=== PATIENT | male | born 1970 | race Caucasian/White ===

== ENCOUNTER 2020-01-22 11:31 | Inpatient (IN) | payer OTHER, SELFPAY ==
[2020-01-22] VITALS (8 sets, daily range): BP systolic 107–129; BP diastolic 57–71; PULSE 65–119; RESP 16–20; TEMP 36.4–38.8; O2SAT 95–97; BMI 27.6
--- NOTE | 2020-01-22 11:45 | ED.MALEGU ---
HPI - Male Genitourinary General Chief complaint: Urogenital-Male <Jennifer Mackey PA-C - Last Filed: 01/22/20 13:01> Stated complaint: kidney pain <MICHAEL Peralta Last Filed: 01/22/20 13:01> Time Seen by Provider: 01/22/20 11:32 <Jennifer Mackey PA-C - Last Filed: 01/22/20 13:01> Source: patient <MICHAEL Peralta Last Filed: 01/22/20 13:01> Mode of arrival: ambulatory <MICHAEL Peralta Last Filed: 01/22/20 13:01> Limitations: no limitations <MICHAEL Peralta Last Filed: 01/22/20 13:01> History of Present Illness HPI Narrative: This is a 49 year old male that presents to the ER for urinary symptoms since yesterday. Reports over the last couple days he noted that his urine started to look cloudy. Reports last night he started having fevers, body aches and flank pain. Reports a history of neurogenic bladder and that he self caths for this. His urologist is Dr. Landaverde. Denies cold symptoms, abdominal pain, vomiting, or hematuria. <Jennifer Mackey PA-C - Last Filed: 01/22/20 13:01> Related Data Home medications: Home Medications Medication Instructions Recorded Confirmed omeprazole 20 mg PO DAILY 01/22/20 01/22/20 simvastatin 10 mg PO 01/22/20 zinc 50 mg PO DAILY 01/22/20 01/22/20 <MICHAEL Peralta Last Filed: 01/22/20 13:01> Allergies/Adverse reactions: Allergies Allergy/AdvReac Type Severity Reaction Status Date / Time No Known Allergies Allergy Unverified 01/22/20 12:37 <MICHAEL Peralta Last Filed: 01/22/20 13:01> Review of Systems Review of Systems: Narrative: CONSTITUTIONAL: Reports fever, chills ENT: Denies rhinorrhea, congestion, sore throat RESPIRATORY: Denies cough GASTROINTESTINAL: Denies abdominal pain, nausea, vomiting, or diarrhea. GENITOURINARY: Denies hematuria. MUSCULOSKELETAL: Reports back pain <Jennifer Mackey PA-C - Last Filed: 01/22/20 13:01> All systems reviewed & are unremarkable except as noted in HPI and below <Jennifer Mackey PA-C - Last Filed: 01/22/20 13:01> PMFSH Past Medical History Medical History: Medical History (Updated 01/22/20 @ 12:54 by Jennifer Mackey PA-C) History of gastroesophageal reflux (GERD) History of neurogenic bladder <Jennifer Mackey PA-C - Last Filed: 01/22/20 13:01> Social History Social History: Social History (Updated 01/22/20 @ 11:53 by Jennifer Mackey PA-C) Smoking status: Never smoker Gender identity (if verbalized by the patient): Male <Jennifer Mackey PA-C - Last Filed: 01/22/20 13:01> Exam Narrative: Exam Narrative: GENERAL: Well-appearing, well-nourished, and in no acute distress. HEAD: Normocephalic, atraumatic. EYES: EOMI. CHEST: Clear to auscultation. No respiratory distress. No wheezes rales or rhonchi HEART: Regular rate and rhythm. No murmur heard. Normal peripheral pulses. ABDOMEN: Soft, nontender, nondistended, normal active bowel sounds. No CVA tenderness EXTREMITIES: Normal range of motion. No edema. SKIN: Warm, dry, no rash. NEURO: No focal deficits. Alert and oriented x3. PSYCH: Normal mood and affect <Jennifer Mackey PA-C - Last Filed: 01/22/20 13:01> Course PHP WEB DEVELOPER/PA Physician Supervision For this patient encounter, I reviewed the PHP WEB DEVELOPER or PA documentation, treatment plan, and medical decision making; and I had [id number] time with this patient. Patient seen at the bedside in conjunction with physician assistant professor of life sciences. Patient with findings of sepsis secondary to UTI. Patient is resting comfortably with improvement in his tachycardia on my evaluation after receiving IV fluids. Patient advised diagnosis of sepsis and need for admission for IV antibiotics. Patient is currently stable and appropriate for general medical floor. <Telma Colunga MD - Last Filed: 01/22/20 13:52> Consultations Consultation #1: Dr. Colunga spoke with Dr. Delaney about patient and workup who accepts admission <Em
[2020-01-22 11:46] LABS: Basophils Percent Auto 0.3 % (0.2-1.2); Eosinophils Absolute Auto 0.1 K/mm3 (0-0.3); Eosinophils Percent Auto 0.4 % (0-4.4); Hematocrit 45.3 % (42.0-52.0); Hemoglobin 15.9 g/dL (14.0-18.0); Immature Granulocyte Absolute 0.06 K/mm3 (0.00-0.031); Immature Granulocyte Percent A 0.4 % (0-0.5); Lymphocytes Absolute Auto 1.11 K/mm3 (0.9-3.2); Lymphocytes Percent Auto 8.2 % (18.3-44.2); Mean Corpuscular HGB Conc 35.1 g/dl (32-36); Mean Corpuscular Hemoglobin 30.7 pg (26-34); Mean Corpuscular Volume 87.5 fl (80-100); Mean Platelet Volume 10.3 fl (7.4-10.4); Monocytes Absolute Auto 1.8 K/mm3 (0.1-0.6); Monocytes Percent Auto 13.5 % (2.6-8.5); Neutrophils Absolute Auto 10.4 K/mm3 (1.3-6.7); Neutrophils Percent Auto 77.2 % (45.5-73.1); Platelet Count Result 243 k/mm3 (150-375); Red Blood Count 5.18 M/mm3 (4.6-6.20); Red Cell Distribution Width 12.1 % (11.5-14.5); White Blood Count 13.5 K/mm3 (4.5-10.0)
[2020-01-22] MEDS: SODIUM CHLORIDE 0.9% IV 1,000 ML 999 ML IV CONT ×2 (11:55→12:34)
--- NOTE | 2020-01-22 11:55 | ECG_ITS ---
Measurements Intervals [place] Rate: 78 P: 26 OR: 168 QRS: 25 QRSD: 81 T: 31 QT: 361 QTc: 412 Interpretive Statements SINUS RHYTHM NORMAL ECG Electronically Signed On 01-22-2020 16:11:09 CDT by Rony Sparks D.O.
[2020-01-22 11:59] LABS: Alanine Aminotransferase 30 U/L (4-50); Albumin Level 4.9 g/dL (3.5-5.1); Alkaline Phosphatase 82 U/L (38-126); Aspartate Amino Transferase 29 U/L (17-59); Bilirubin,Total 2.9 mg/dL (0.2-1.3); Blood Urea Nitrogen 9 mg/dL (9-20); Calcium 9.5 mg/dL (8.4-10.2); Carbon Dioxide 26 mmol/L (22-30); Chloride 102 mmol/L (98-107); Estimated CRCL calculation 82 ml/min; Estimated Glomerular Filt Rate > 60; Glucose 116 mg/dL (75-110); Lipase 76 U/L (23-300); Sodium 136 mmol/L (137-145)
--- NOTE | 2020-01-22 12:07 | PC.NURSE ---
Called to add on PT PTT INR, Lactic acid, C-reactive protein, and Direct Bili Indirect Bili.
[2020-01-22 12:16] LABS: Prothrombin Time 13.3 Seconds (11.1-14.7)
[2020-01-22 12:17] LABS: Partial Thromboplastin Time 29.7 SECONDS (22.3-36.8)
[2020-01-22 12:18] LABS: Add Urine Microscopic? YES; Appearance Urine Clear (Clear); Bacteria Urine Trace /hpf; Bilirubin Urine Negative (Negative); Blood Urine Negative (Negative); Color Urine Yellow (Yellow); Glucose Urine UA Negative (Negative); Ketones Urine Negative (Negative); Leukocyte Esterase Ur 2+ LEU/UL (Negative); Mucus Urine Rare /lpf; Nitrate Urine Positive (Negative); Protein Urine 2+ mg/dL (Negative); Specific Grav Ur 1.019 (1.001-1.035); Squamous Epithelial Cell Urine Rare /hpf (Few); WBC Urine >75 /hpf
[2020-01-22 12:20] LABS: Bilirubin Indirect 2.8 mg/dL (0-1.1)
[2020-01-22 12:29] LABS: CRP 4.1 mg/dL (<1.0)
[2020-01-22 12:58] LABS: Lactic Acid Reflex 1.2 mmol/L (0.7-2.1)
--- NOTE | 2020-01-22 13:48 | ADMGEN ---
This patient, Richard Aguilar, was admitted to 2 Medical Room 260-. Patient/family oriented to hospital policies and general routines including ID bracelet, bed and alarms, visiting hours, pain management, procedures, bathroom and other care routines, personal items, smoking policy, room service/diet, and visiting hours. Valuables list has been completed. Information on how to activate the Rapid Response Team has been discussed. Patient/Family are encouraged to report perceived risks to care and to ask questions if they do not understand what they are told or what they should do.
[2020-01-22] MEDS: SODIUM CHLORIDE 0.9% IV 1,000 ML 125 ML IV CONT ×2 (14:09→22:13)
--- NOTE | 2020-01-22 20:05 | PM.IMHP ---
H&P: HPI History of Present Illness Chief complaint: sepsis,urinary tract infection Narrative: Richard Aguilar is a 49 year old male with a history of neurogenic bladder. The patient's self [place] about 4 to 5 times a day. He has been very careful and has not had a UTI and several years. He stated that he has not had any resistant bacterial infections. The patient started to complain of having some lower back pain for the last couple of days. His urine start to look dark and cloudy. He started having fevers, body aches, flank pain over the last couple days. No vomiting no diarrhea no cough. The patient took Tylenol for fever and pain. IV fluids. IV Tylenol. And ceftriaxone. Patient is being treated for pyelonephritis. No CT was performed now. Date of service 01/22/2020 Review of Systems Review of Systems: All systems reviewed & are unremarkable except as noted in HPI and below Constitutional: Constitutional: Reports as per HPI and Reports no additional constitutional complaints Eyes: Eyes: Reports as per HPI and Reports no additional eye complaints ENT: Reports system reviewed and no additional complaints, except as documented and Reports Normal hearing present Cardiovascular: Cardiovascular: Reports no additional cardiovascular complaints Respiratory: Respiratory: Reports no additional respiratory complaints and Reports no additional respiratory complaints Gastrointestinal: Gastrointestinal: Reports as per HPI and Reports no additional gastrointestinal complaints Musculoskeletal: Musculoskeletal: Reports no additional musculoskeletal complaints Integumentary/Breasts: Skin/Breast: Reports system reviewed and no additional complaints, except as docu and Reports as per HPI Neurologic: Reports system reviewed and no additional complaints, except as documented, Reports as per HPI and Reports Normal hearing present Psychiatric: Psychiatric: Reports no additional psychiatric complaints and Reports as per HPI Endocrine: Endocrine: Reports no additional endocrine complaints Hematologic/Lymphatic: Hematologic/Lymphatic: Reports no additional hematologic/lymphatic complaints Allergic/Immunologic: Allergic/Immunologic: Reports no additional allergic/immunologic complaints [facility] Past Medical History Medical History (Updated 01/22/20 @ 20:14 by Holley Danielson NP) History of gastroesophageal reflux (GERD) History of neurogenic bladder Hyperlipidemia Neurogenic bladder Straight Caths about 4 -5 times a day. Surgical History Surgical History (Updated 01/22/20 @ 20:10 by Holley Danielson NP) H/O lymph node excision Left neck S/P cystourethroscopy with dilation of urethral stricture Family History Family History Mother Hypercholesteremia Father Hypercholesteremia Social History Social History (Updated 01/22/20 @ 20:11 by Holley Danielson NP) Social History: The patient lives with his Kassandra. They have 2 children together. 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 The patient is a full code. He is a social drinker. Lifelong nonsmoker no illicit drugs or marijuana Smoking status: Never smoker Second hand tobacco smoke exposure: Yes Alcohol intake: current Drinks per week: 3 Substance use: never Living arrangements: with family Occupation/Education: occupation Gender identity (if verbalized by the patient): Male Spiritual care concerns: No Meds Home Medications and Allergies Home Medications Medication Instructions Recorded Confirmed Type omeprazole 20 mg PO DAILY 01/22/20 01/22/20 History simvastatin 10 mg PO HS 01/22/20 01/22/20 History zinc 50 mg PO ONCE 01/22/20 01/22/20 History Allergies Allergy/AdvReac Type Severity Reaction Status Date / Time No Known Allergies Allergy Unverified 01/22/20 12:37 Vital Signs Vital Signs - 24 hr 01/22/20 1
[2020-01-22] MEDS: SIMVASTATIN 10 MG TABLET PO (22:12)
[2020-01-23] MEDS: SODIUM CHLORIDE 0.9% IV 1,000 ML 125 ML IV CONT ×3 (05:19→22:13)
[2020-01-23 06:05] LABS: Basophils Percent Auto 0.4 % (0.2-1.2); Eosinophils Absolute Auto 0.2 K/mm3 (0-0.3); Eosinophils Percent Auto 2.2 % (0-4.4); Hematocrit 38.3 % (42.0-52.0); Hemoglobin 13.3 g/dL (14.0-18.0); Immature Granulocyte Absolute 0.03 K/mm3 (0.00-0.031); Immature Granulocyte Percent A 0.4 % (0-0.5); Lymphocytes Absolute Auto 1.35 K/mm3 (0.9-3.2); Lymphocytes Percent Auto 17.7 % (18.3-44.2); Mean Corpuscular HGB Conc 34.7 g/dl (32-36); Mean Corpuscular Hemoglobin 30.5 pg (26-34); Mean Corpuscular Volume 87.8 fl (80-100); Mean Platelet Volume 10.3 fl (7.4-10.4); Monocytes Absolute Auto 1.3 K/mm3 (0.1-0.6); Monocytes Percent Auto 16.9 % (2.6-8.5); Neutrophils Absolute Auto 4.8 K/mm3 (1.3-6.7); Neutrophils Percent Auto 62.4 % (45.5-73.1); Platelet Count Result 186 k/mm3 (150-375); Red Blood Count 4.36 M/mm3 (4.6-6.20); Red Cell Distribution Width 12.2 % (11.5-14.5); White Blood Count 7.6 K/mm3 (4.5-10.0)
[2020-01-23 06:24] LABS: Lactic Acid 0.6 mmol/L (0.7-2.1)
[2020-01-23 06:26] LABS: Alanine Aminotransferase 69 U/L (4-50); Albumin Level 3.8 g/dL (3.5-5.1); Alkaline Phosphatase 75 U/L (38-126); Aspartate Amino Transferase 67 U/L (17-59); Bilirubin,Total 1.6 mg/dL (0.2-1.3); Blood Urea Nitrogen 7 mg/dL (9-20); Calcium 8.5 mg/dL (8.4-10.2); Carbon Dioxide 24 mmol/L (22-30); Chloride 108 mmol/L (98-107); Estimated CRCL calculation 100 ml/min; Estimated Glomerular Filt Rate > 60; Glucose 106 mg/dL (75-110); Magnesium 1.9 mg/dL (1.6-2.3); Potassium 3.9 mmol/L (3.4-5.0); Sodium 138 mmol/L (137-145)
[2020-01-23 07:10] LABS: Thyroid Stimulating Hormone Reflex 0.773 uIU/mL (0.465-4.68)
[2020-01-23] MEDS: PANTOPRAZOLE 40 MG TABLET PO (09:53)
[2020-01-23 10:02] LABS: Blood Urea Nitrogen 6 mg/dL (9-20); Calcium 8.9 mg/dL (8.4-10.2); Carbon Dioxide 25 mmol/L (22-30); Chloride 109 mmol/L (98-107); Estimated CRCL calculation 90 ml/min; Estimated Glomerular Filt Rate > 60; Glucose 135 mg/dL (75-110); Potassium 3.7 mmol/L (3.4-5.0); Sodium 139 mmol/L (137-145)
[2020-01-23 12:09] VITALS: BP 123/77; PULSE 84; RESP 19; TEMP 36.5; O2SAT 99
[2020-01-23 14:00] VITALS: BP 111/51; PULSE 66; RESP 16; TEMP 36.9; O2SAT 96
--- NOTE | 2020-01-23 15:39 | PM.IMPN ---
Progress Note: A&P Assessment and Plan (1) Acute pyelonephritis: Code(s): N10 - Acute pyelonephritis Status: Acute Assessment and Plan: Continue with ceftriaxone. Continue to monitor cultures. Tylenol for pain management. The patient is okay with that Tylenol does not require any of the pain medication at this time. Continue with IV fluids. 01/23/20 15:39 Patient is a 49-year-old male with history of neurogenic bladder and had been self cathing and has not had any urinary symptoms and several years however last couple of days patient noticed that urine was more dark cloudy lower abdominal pain back pain fever and chills he called his primary care doctor and was instructed to come to ER, most likely patient has a pyelonephritis started on Rocephin will follow up on urine culture and sensitivity and further recommendation to follow, and states feeling much better compared to when he arrived denies any fever or chills (2) Hyperlipidemia: Code(s): E78.5 - Hyperlipidemia, unspecified Status: Chronic Assessment and Plan: Continue with simvastatin. (3) Neurogenic bladder: Code(s): N31.9 - Neuromuscular dysfunction of bladder, unspecified Status: Chronic Assessment and Plan: Patient typically straight [place] 4 to 5 times a day. Subjective Date/time seen: 01/23/20 15:39 Patient is a 49-year-old male with history of neurogenic bladder and had been self cathing and has not had any urinary symptoms and several years however last couple of days patient noticed that urine was more dark cloudy lower abdominal pain back pain fever and chills he called his primary care doctor and was instructed to come to ER, most likely patient has a pyelonephritis started on Rocephin will follow up on urine culture and sensitivity and further recommendation to follow, and states feeling much better compared to when he arrived denies any fever or chills Review of Systems Review of Systems: All systems reviewed & are unremarkable except as noted in HPI and below Exam Const: General: comfortable and no acute distress HENMT: General nose exam: Normal nares present Mouth: Yes moist mucous membranes Eyes: General: appearance normal, both eyes and all related structures Sclera: sclerae normal Neck: Neck: supple Resp: Effort & Inspection: normal respiratory effort Auscultation: clear to auscultation bilaterally Cardio: Rate: regular rate Rhythm: regular rhythm GI: Auscultation: normal bowel sounds Other: Diffusely tender Skin: General skin exam: normal color Neuro: Speech: normal speech Sensory Exam: normal sensation Extrem: General: normal to inspection Psych: Affect: Anxious affect present Objective Data Vital Signs Vital Signs: Vital Signs - 24 hr 01/22/20 18:31 01/22/20 19:01 01/22/20 22:00 Temperature 99.1 F 97.5 F L 98 F Pulse Rate 65 Respiratory Rate 20 Blood Pressure 109/57 L Pulse Oximetry 96 01/23/20 12:09 01/23/20 14:00 Temperature 97.7 F 98.4 F Pulse Rate 84 66 Respiratory Rate 19 16 Blood Pressure 123/77 111/51 L Pulse Oximetry 99 96 Intake/Output Intake/Output: Intake & Output 01/20/20 01/21/20 01/22/20 01/23/20 23:59 23:59 23:59 23:59 Intake Total 3670 3070 Output Total 1100 825 Balance 2570 2245 Meds/Results Medications: Active Medications Generic Name Dose Route Start Last Admin Trade Name Freq PRN Reason Stop Dose Admin Sodium Chloride 1,000 mls @ 125 mls/hr 01/22/20 13:05 01/23/20 15:10 Normal Saline Iv IV CONT 125 mls/hr .Q8H AIRAM Administration Ceftriaxone Sodium/Dextrose 1 gm in 50 mls @ 100 mls/hr 01/23/20 14:00 01/23/20 15:07 Rocephin 1 Gm/D5w 50 Ml IVPB 100 mls/hr Q24H AIRAM Administration Pantoprazole Sodium 40 mg 01/23/20 09:00 01/23/20 09:53 Protonix PO 40 mg QAM AIRAM Administration Simvastatin 10 mg 01/22/20 21:00 01/22/20 22:12 Zocor PO 10 mg HS AIRAM Administration
[2020-01-23] MEDS: SIMVASTATIN 10 MG TABLET PO (21:07)
[2020-01-23 22:00] VITALS: BP 124/73; PULSE 79; RESP 20; TEMP 36.7; O2SAT 95
[2020-01-24 06:00] VITALS: BP 125/74; PULSE 74; RESP 20; TEMP 36.7; O2SAT 96
[2020-01-24] MEDS: SODIUM CHLORIDE 0.9% IV 1,000 ML 125 ML IV CONT ×3 (06:22→22:09)
[2020-01-24] MEDS: PANTOPRAZOLE 40 MG TABLET PO (07:48)
[2020-01-24 09:22] LABS: Hematocrit 39.6 % (42.0-52.0); Hemoglobin 13.6 g/dL (14.0-18.0); Mean Corpuscular HGB Conc 34.3 g/dl (32-36); Mean Corpuscular Hemoglobin 30.2 pg (26-34); Mean Platelet Volume 9.9 fl (7.4-10.4); Platelet Count Result 189 k/mm3 (150-375); Red Cell Distribution Width 12.3 % (11.5-14.5); White Blood Count 5.6 K/mm3 (4.5-10.0)
--- NOTE | 2020-01-24 13:25 | PM.IMPN ---
Progress Note: A&P Assessment and Plan (1) Acute pyelonephritis: Code(s): N10 - Acute pyelonephritis Status: Acute Assessment and Plan: Continue with ceftriaxone. Continue to monitor cultures. Tylenol for pain management. The patient is okay with that Tylenol does not require any of the pain medication at this time. Continue with IV fluids. 01/24/20 13:25 Patient is a 49-year-old male with history of neurogenic bladder and had been self cathing and has not had any urinary symptoms and several years however last couple of days patient noticed that urine was more dark cloudy lower abdominal pain back pain fever and chills he called his primary care doctor and was instructed to come to ER, most likely patient has a pyelonephritis started on Rocephin, urine culture is growing E coli sensitive to Rocephin, patient is feeling much better denies any abdominal pain nausea or vomiting fever or chills, patient self catheterization for urination and has a pyelonephritis will treat with IV antibiotics for total for 5 days before discharging patient home on oral antibiotic for 7 days (2) Hyperlipidemia: Code(s): E78.5 - Hyperlipidemia, unspecified Status: Chronic Assessment and Plan: Continue with simvastatin. (3) Neurogenic bladder: Code(s): N31.9 - Neuromuscular dysfunction of bladder, unspecified Status: Chronic Assessment and Plan: Patient typically straight [place] 4 to 5 times a day. Subjective Date/time seen: 01/24/20 13:25 Patient is a 49-year-old male with history of neurogenic bladder and had been self cathing and has not had any urinary symptoms and several years however last couple of days patient noticed that urine was more dark cloudy lower abdominal pain back pain fever and chills he called his primary care doctor and was instructed to come to ER, most likely patient has a pyelonephritis started on Rocephin, urine culture is growing E coli sensitive to Rocephin, patient is feeling much better denies any abdominal pain nausea or vomiting fever or chills, patient self catheterization for urination and has a pyelonephritis will treat with IV antibiotics for total for 5 days before discharging patient home on oral antibiotic for 7 days Review of Systems Review of Systems: All systems reviewed & are unremarkable except as noted in HPI and below Exam Const: General: comfortable and no acute distress HENMT: General nose exam: Normal nares present Mouth: Yes moist mucous membranes Eyes: Sclera: sclerae normal Neck: Neck: supple Resp: Effort & Inspection: normal respiratory effort Auscultation: clear to auscultation bilaterally Cardio: Rate: regular rate Rhythm: regular rhythm GI: Auscultation: normal bowel sounds Skin: General skin exam: normal color Neuro: Speech: normal speech Sensory Exam: normal sensation Extrem: General: normal to inspection Psych: Affect: Anxious affect present Objective Data Vital Signs Vital Signs: Vital Signs - 24 hr 01/23/20 14:00 01/23/20 22:00 01/24/20 06:00 Temperature 98.4 F 98.1 F 98.1 F Pulse Rate 66 79 74 Respiratory Rate 16 20 20 Blood Pressure 111/51 L 124/73 125/74 Pulse Oximetry 96 95 96 Intake/Output Intake/Output: Intake & Output 01/21/20 01/22/20 01/23/20 01/24/20 23:59 23:59 23:59 23:59 Intake Total 3670 5980 1630 Output Total 1100 2825 1300 Balance 2570 3155 330 Meds/Results Medications: Active Medications Generic Name Dose Route Start Last Admin Trade Name Freq PRN Reason Stop Dose Admin Acetaminophen 650 mg 01/23/20 18:21 Tylenol Tablet PO Q6H PRN Mild Pain (1-3) or Fever Hydrocodone Bitart/Acetaminophen 1 tab 01/23/20 18:22 01/23/20 21:09 [place] 5-325 Mg PO 1 tab Q6H PRN Administration Pain Rated 4-6 Sodium Chloride 1,000 mls @ 125 mls/hr 01/22/20 13:05 01/24/20 06:22 Normal Saline Iv IV CONT 125 mls/hr .Q8H AIRAM Administration Ceftriaxone S
[2020-01-24 14:00] VITALS: BP 117/72; PULSE 68; RESP 17; TEMP 36.9; O2SAT 98
[2020-01-24 22:00] VITALS: BP 106/67; PULSE 69; RESP 18; TEMP 36.5; O2SAT 98
[2020-01-24] MEDS: SIMVASTATIN 10 MG TABLET PO (22:09)
[2020-01-25 06:00] VITALS: BP 113/61; PULSE 60; RESP 18; TEMP 36.4; O2SAT 95
[2020-01-25 06:22] LABS: Hematocrit 38.4 % (42.0-52.0); Hemoglobin 13.4 g/dL (14.0-18.0); Mean Corpuscular HGB Conc 34.9 g/dl (32-36); Mean Corpuscular Volume 86.1 fl (80-100); Mean Platelet Volume 10.2 fl (7.4-10.4); Platelet Count Result 216 k/mm3 (150-375); Red Blood Count 4.46 M/mm3 (4.6-6.20); White Blood Count 4.9 K/mm3 (4.5-10.0)
[2020-01-25] MEDS: SODIUM CHLORIDE 0.9% IV 1,000 ML 125 ML IV CONT ×2 (09:15→17:51)
[2020-01-25] MEDS: PANTOPRAZOLE 40 MG TABLET PO (09:15)
--- NOTE | 2020-01-25 11:21 | PM.IMPN ---
Progress Note: A&P Assessment and Plan (1) Acute pyelonephritis: Code(s): N10 - Acute pyelonephritis Status: Acute Assessment and Plan: Continue with ceftriaxone. Continue to monitor cultures. Tylenol for pain management. The patient is okay with that Tylenol does not require any of the pain medication at this time. Continue with IV fluids. 01/25/20 11:21 Patient is a 49-year-old male with history of neurogenic bladder and had been self cathing and has not had any urinary symptoms and several years however last couple of days patient noticed that urine was more dark cloudy lower abdominal pain back pain fever and chills he called his primary care doctor and was instructed to come to ER, most likely patient has a pyelonephritis started on Rocephin, urine culture is growing E coli sensitive to Rocephin, patient is feeling much better denies any abdominal pain nausea or vomiting fever or chills, patient self catheterization for urination and has a pyelonephritis will treat with IV antibiotics for total for 4/5 days before discharging patient home on oral antibiotic for 7 days (2) Hyperlipidemia: Code(s): E78.5 - Hyperlipidemia, unspecified Status: Chronic Assessment and Plan: Continue with simvastatin. (3) Neurogenic bladder: Code(s): N31.9 - Neuromuscular dysfunction of bladder, unspecified Status: Chronic Assessment and Plan: Patient typically straight [place] 4 to 5 times a day. Subjective Date/time seen: 01/25/20 11:21 Patient is a 49-year-old male with history of neurogenic bladder and had been self cathing and has not had any urinary symptoms and several years however last couple of days patient noticed that urine was more dark cloudy lower abdominal pain back pain fever and chills he called his primary care doctor and was instructed to come to ER, most likely patient has a pyelonephritis started on Rocephin, urine culture is growing E coli sensitive to Rocephin, patient is feeling much better denies any abdominal pain nausea or vomiting fever or chills, patient self catheterization for urination and has a pyelonephritis will treat with IV antibiotics for total for 4/5 days before discharging patient home on oral antibiotic for 7 days Review of Systems Review of Systems: All systems reviewed & are unremarkable except as noted in HPI and below Exam Const: General: comfortable and no acute distress HENMT: General nose exam: Normal nares present Eyes: Sclera: sclerae normal Neck: Neck: supple Resp: Effort & Inspection: normal respiratory effort Auscultation: clear to auscultation bilaterally Cardio: Rate: regular rate Rhythm: regular rhythm GI: Auscultation: normal bowel sounds Skin: General skin exam: normal color Neuro: Speech: normal speech Sensory Exam: normal sensation Extrem: General: normal to inspection Psych: Affect: Anxious affect present Objective Data Vital Signs Vital Signs: Vital Signs - 24 hr 01/24/20 14:00 01/24/20 22:00 01/25/20 06:00 Temperature 98.5 F 97.7 F 97.6 F Pulse Rate 68 69 60 Respiratory Rate 17 18 18 Blood Pressure 117/72 106/67 113/61 Pulse Oximetry 98 98 95 Intake/Output Intake/Output: Intake & Output 01/22/20 01/23/20 01/24/20 01/25/20 23:59 23:59 23:59 23:59 Intake Total 3670 5980 5250 1630 Output Total 1100 2825 4700 1200 Balance 2570 3155 550 430 Meds/Results Medications: Active Medications Generic Name Dose Route Start Last Admin Trade Name Freq PRN Reason Stop Dose Admin Acetaminophen 650 mg 01/23/20 18:21 Tylenol Tablet PO Q6H PRN Mild Pain (1-3) or Fever Hydrocodone Bitart/Acetaminophen 1 tab 01/23/20 18:22 01/23/20 21:09 [place] 5-325 Mg PO 1 tab Q6H PRN Administration Pain Rated 4-6 Sodium Chloride 1,000 mls @ 125 mls/hr 01/22/20 13:05 01/25/20 09:15 Normal Saline Iv IV CONT 125 mls/hr .Q8H AIRAM Administration Ceftriaxone Sodium/Dextrose 1 gm i
[2020-01-25 14:00] VITALS: BP 118/61; PULSE 67; RESP 16; TEMP 37.3; O2SAT 98
[2020-01-25] MEDS: SIMVASTATIN 10 MG TABLET PO (20:16)
[2020-01-25 21:32] VITALS: BP 117/56; PULSE 68; RESP 16; TEMP 36.6; O2SAT 99
[2020-01-26] MEDS: SODIUM CHLORIDE 0.9% IV 1,000 ML 125 ML IV CONT ×3 (01:54→20:34)
[2020-01-26 06:00] VITALS: BP 108/64; PULSE 625; RESP 16; TEMP 36.7; O2SAT 96
[2020-01-26 06:00] LABS: Hemoglobin 13.3 g/dL (14.0-18.0); Mean Corpuscular Hemoglobin 30.4 pg (26-34); Mean Platelet Volume 10.4 fl (7.4-10.4); Platelet Count Result 227 k/mm3 (150-375); Red Blood Count 4.37 M/mm3 (4.6-6.20); Red Cell Distribution Width 11.9 % (11.5-14.5); White Blood Count 5.4 K/mm3 (4.5-10.0)
[2020-01-26] MEDS: PANTOPRAZOLE 40 MG TABLET PO (08:07)
[2020-01-26 14:00] VITALS: BP 106/74; PULSE 72; RESP 16; TEMP 36.3; O2SAT 98
--- NOTE | 2020-01-26 14:05 | PM.IMPN ---
Progress Note: A&P Assessment and Plan (1) Acute pyelonephritis: Code(s): N10 - Acute pyelonephritis Status: Acute Assessment and Plan: Continue with ceftriaxone. Continue to monitor cultures. Tylenol for pain management. The patient is okay with that Tylenol does not require any of the pain medication at this time. Continue with IV fluids. 01/25/20 11:21 Patient is a 49-year-old male with history of neurogenic bladder and had been self cathing and has not had any urinary symptoms and several years however last couple of days patient noticed that urine was more dark cloudy lower abdominal pain back pain fever and chills he called his primary care doctor and was instructed to come to ER, most likely patient has a pyelonephritis started on Rocephin, urine culture is growing E coli sensitive to Rocephin, patient is feeling much better denies any abdominal pain nausea or vomiting fever or chills, patient self catheterization for urination and has a pyelonephritis will treat with IV antibiotics for total for 4/5 days before discharging patient home on oral antibiotic for 7 days (2) Hyperlipidemia: Code(s): E78.5 - Hyperlipidemia, unspecified Status: Chronic Assessment and Plan: Continue with simvastatin. (3) Neurogenic bladder: Code(s): N31.9 - Neuromuscular dysfunction of bladder, unspecified Status: Chronic Assessment and Plan: Patient typically straight [place] 4 to 5 times a day. Subjective Date/time seen: 01/26/20 14:05 Patient is a 49-year-old male with history of neurogenic bladder and had been self cathing and has not had any urinary symptoms and several years however last couple of days patient noticed that urine was more dark cloudy lower abdominal pain back pain fever and chills he called his primary care doctor and was instructed to come to ER, most likely patient has a pyelonephritis started on Rocephin, urine culture is growing E coli sensitive to Rocephin, patient is feeling much better denies any abdominal pain nausea or vomiting fever or chills, patient self catheterization for urination and has a pyelonephritis will treat with IV antibiotics for total for 4/5 days before discharging patient home on oral antibiotic for 7 days Review of Systems Review of Systems: All systems reviewed & are unremarkable except as noted in HPI and below Exam Const: General: comfortable and no acute distress HENMT: General nose exam: Normal nares present Mouth: Yes moist mucous membranes Eyes: General: appearance normal, both eyes and all related structures Sclera: sclerae normal Neck: Neck: supple Resp: Effort & Inspection: normal respiratory effort Auscultation: clear to auscultation bilaterally Cardio: Rate: regular rate Rhythm: regular rhythm GI: Auscultation: normal bowel sounds Skin: General skin exam: normal color Neuro: Speech: normal speech Sensory Exam: normal sensation Extrem: General: normal to inspection Psych: Affect: Anxious affect present Objective Data Vital Signs Vital Signs: Vital Signs - 24 hr 01/25/20 21:32 01/26/20 06:00 Temperature 97.8 F 98.0 F Pulse Rate 68 625 H Respiratory Rate 16 16 Blood Pressure 117/56 L 108/64 Pulse Oximetry 99 96 Intake/Output Intake/Output: Intake & Output 01/23/20 01/24/20 01/25/20 01/26/20 23:59 23:59 23:59 23:59 Intake Total 5980 5250 4155 2240 Output Total 2825 4700 3950 2800 Balance 3155 550 205 -560 Meds/Results Medications: Active Medications Generic Name Dose Route Start Last Admin Trade Name Freq PRN Reason Stop Dose Admin Acetaminophen 650 mg 01/23/20 18:21 Tylenol Tablet PO Q6H PRN Mild Pain (1-3) or Fever Hydrocodone Bitart/Acetaminophen 1 tab 01/23/20 18:22 01/23/20 21:09 [place] 5-325 Mg PO 1 tab Q6H PRN Administration Pain Rated 4-6 Sodium Chloride 1,000 mls @ 125 mls/hr 01/22/20 13:05 01/26/20 09:58 Normal Saline Iv IV CONT 125 mls/h
[2020-01-26] MEDS: SIMVASTATIN 10 MG TABLET PO (20:34)
[2020-01-26 22:00] VITALS: BP 121/71; PULSE 68; RESP 18; TEMP 36.4; O2SAT 93
[2020-01-27] MEDS: SODIUM CHLORIDE 0.9% IV 1,000 ML 125 ML IV CONT (03:46)
[2020-01-27 05:57] LABS: Hematocrit 38.8 % (42.0-52.0); Hemoglobin 13.7 g/dL (14.0-18.0); Mean Corpuscular HGB Conc 35.3 g/dl (32-36); Mean Corpuscular Hemoglobin 30.6 pg (26-34); Mean Corpuscular Volume 86.8 fl (80-100); Mean Platelet Volume 10.2 fl (7.4-10.4); Platelet Count Result 240 k/mm3 (150-375); Red Blood Count 4.47 M/mm3 (4.6-6.20); Red Cell Distribution Width 11.9 % (11.5-14.5); White Blood Count 5.7 K/mm3 (4.5-10.0)
[2020-01-27 06:00] VITALS: BP 108/72; PULSE 93; RESP 18; TEMP 36.3; O2SAT 94
[2020-01-27] MEDS: PANTOPRAZOLE 40 MG TABLET PO (08:37)
--- NOTE | 2020-01-27 11:03 | PM.DS ---
DS: Diagnosis Admitting Diagnosis Admitting Diagnosis: Acute pyelonephritis Discharge Diagnosis (1) Acute pyelonephritis: Code(s): N10 - Acute pyelonephritis Status: Acute Assessment and Plan: Continue with ceftriaxone. Continue to monitor cultures. Tylenol for pain management. The patient is okay with that Tylenol does not require any of the pain medication at this time. Continue with IV fluids. 01/25/20 11:21 Patient is a 49-year-old male with history of neurogenic bladder and had been self cathing and has not had any urinary symptoms and several years however last couple of days patient noticed that urine was more dark cloudy lower abdominal pain back pain fever and chills he called his primary care doctor and was instructed to come to ER, most likely patient has a pyelonephritis started on Rocephin, urine culture is growing E coli sensitive to Rocephin, patient is feeling much better denies any abdominal pain nausea or vomiting fever or chills, patient self catheterization for urination and has a pyelonephritis will treat with IV antibiotics for total for 4/5 days before discharging patient home on oral antibiotic for 7 days (2) Hyperlipidemia: Code(s): E78.5 - Hyperlipidemia, unspecified Status: Chronic Assessment and Plan: Continue with simvastatin. (3) Neurogenic bladder: Code(s): N31.9 - Neuromuscular dysfunction of bladder, unspecified Status: Chronic Assessment and Plan: Patient typically straight Centre 4 to 5 times a day. DS: Summary Hospital Course Reason for hospitalization: Richard Aguilar is a 49 year old male with a history of neurogenic bladder. The patient's self Centre about 4 to 5 times a day. He has been very careful and has not had a UTI and several years. He stated that he has not had any resistant bacterial infections. The patient started to complain of having some lower back pain for the last couple of days. His urine start to look dark and cloudy. He started having fevers, body aches, flank pain over the last couple days. No vomiting no diarrhea no cough. The patient took Tylenol for fever and pain. IV fluids. IV Tylenol. And ceftriaxone. Patient is being treated for pyelonephritis. No CT was performed now. Date of service 01/22/2020 Hospital Course: Patient is a 49-year-old male with history of neurogenic bladder and had been self cathing and has not had any urinary symptoms and several years however last couple of days patient noticed that urine was more dark cloudy lower abdominal pain back pain fever and chills he called his primary care doctor and was instructed to come to ER, most likely patient has a pyelonephritis started on Rocephin, urine culture is growing E coli sensitive to Rocephin, patient is feeling much better denies any abdominal pain nausea or vomiting fever or chills, patient self catheterization for urination and has a pyelonephritis will treat with IV antibiotics for total for 5/5 days before discharging patient home on oral antibiotic for 7 days, today patient completed 5 days of IV antibiotic his clinically stable will going discharge the patient home on oral antibiotics for 7 days Status at Discharge Functional status at discharge: independent ambulation Overall status at discharge: patient is back to baseline Time Spent with Patient Time attestation: Total time spent providing and/or coordinating discharge services: Patient was seen and examined at the time of the discharge Condition at discharge is stable Code status: Full code. Time spent preparing discharge summary, discharge medications, discussing discharge planning with nurse case management and patient is 35 minutes. Time spent: Greater than 30 minutes Exam Const: General: comfortable and no acute distress HENMT: General nose exam: Normal nares present Mouth: Yes moist mucous membranes Eyes: General: appearance normal, both eyes and all related structures Sclera: sclerae normal
== END 2020-01-27 12:28 | disposition home or self-care (01) | DRG 698 ==
LOC: ANHED 13:05 → ANH2MED 16:00
PROVIDERS: Nurse Practitioner; Physician Assistant; Admitting Provider Internal Medicine; Emergency Provider Emergency Medicine; Visit Provider Family Medicine
DX: T83.518A Infection and inflammatory reaction due to other urinary catheter, initial encounter (principal); A41.9 Sepsis, unspecified organism; R65.20 Severe sepsis without septic shock; N39.0 Urinary tract infection, site not specified; N10 Acute pyelonephritis; E78.5 Hyperlipidemia, unspecified; N31.9 Neuromuscular dysfunction of bladder, unspecified; B96.20 Unspecified Escherichia coli [E. coli] as the cause of diseases classified elsewhere; Z11.59 Encounter for screening for other viral diseases
CPT/HCPCS: 36415; 80048; 80053; 81001; 82248; 83605; 83690; 83735; 84443; 85025; 85027; 85610; 85730; 86140; 87040; 87077; 87086; 87088; 87186; 87635; 93005; 96365; 96367; 99285; A9270; J0131; J0696; J7030; U0003

== ENCOUNTER 2021-07-08 15:54 | Emergency (ER) | payer OTHER, SELFPAY ==
[2021-07-08 16:02] VITALS: BP 136/83; PULSE 68; RESP 18; TEMP 36.2; O2SAT 98
[2021-07-08 16:26] LABS: Basophils Absolute Auto 0.1 K/mm3 (0.0-0.1); Basophils Percent Auto 0.9 % (0.2-1.2); Eosinophils Absolute Auto 0.4 K/mm3 (0-0.3); Eosinophils Percent Auto 6.3 % (0-4.4); Hematocrit 43.9 % (42.0-52.0); Hemoglobin 15.5 g/dL (14.0-18.0); Immature Granulocyte Absolute 0.02 K/mm3 (0.00-0.031); Immature Granulocyte Percent A 0.3 % (0-0.5); Lymphocytes Absolute Auto 2.48 K/mm3 (0.9-3.2); Lymphocytes Percent Auto 37.3 % (18.3-44.2); Mean Corpuscular HGB Conc 35.3 g/dl (32-36); Mean Corpuscular Hemoglobin 31.3 pg (26-34); Mean Corpuscular Volume 88.7 fl (80-100); Mean Platelet Volume 10.2 fl (7.4-10.4); Monocytes Absolute Auto 0.7 K/mm3 (0.1-0.6); Monocytes Percent Auto 9.9 % (2.6-8.5); Neutrophils Percent Auto 45.3 % (45.5-73.1); Platelet Count Result 267 k/mm3 (150-375); Red Blood Count 4.95 M/mm3 (4.6-6.20); White Blood Count 6.6 K/mm3 (4.5-10.0)
[2021-07-08 16:30] LABS: Alanine Aminotransferase 31 U/L (4-50); Alkaline Phosphatase 63 U/L (38-126); Anion Gap 8 mmol/L (8-16); Aspartate Amino Transferase 26 U/L (17-59); Bilirubin,Total 1.4 mg/dL (0.2-1.3); Blood Urea Nitrogen 10 mg/dL (9-20); Calcium 9.8 mg/dL (8.4-10.2); Carbon Dioxide 31 mmol/L (22-30); Chloride 102 mmol/L (98-107); Estimated CRCL calculation 80 ml/min; Estimated Glomerular Filt Rate > 60; Glucose 98 mg/dL (65-110); Lipase 97 U/L (23-300); Potassium 3.7 mmol/L (3.4-5.0); Sodium 141 mmol/L (137-145)
--- NOTE | 2021-07-08 18:54 | ED.MALEGU ---
HPI - Male Genitourinary General Chief complaint: Urogenital-Male Stated complaint: UTI, SELF CATHS Time Seen by Provider: 07/08/21 18:53 Source: patient Mode of arrival: ambulatory Limitations: no limitations History of Present Illness HPI Narrative: Patient is a 51-year-old male with a history of neurogenic bladder, presenting for evaluation of lower back pain, some frontal abdominal discomfort. Patient states that he has to self catheterize himself, has done so for the past 11 years. Patient denies fever, chills, nausea or vomiting. He reports mild lower back pain without specific flank pain. Patient states that he called into an [employer] physician at [place] who recommended he be seen at the emergency department for urinalysis and urine culture given patient has a history of urinary sepsis. In the past, patient has been hospitalized for this. He has seen Dr. Landaverde. Patient denies any sharp stabbing abdominal pain or flank pain. No history of nephrolithiasis. Patient has not noticed any malodorous urine or hematuria. He denies dysuria. Per chart review, patient with a history of E. coli pyelonephritis, resistant to ciprofloxacin, sensitive to cephalosporins. Related Data Home Medications Medication Instructions Recorded Confirmed omeprazole 20 mg PO DAILY 01/22/20 01/22/20 cranberry 07/08/21 Allergies Allergy/AdvReac Type Severity Reaction Status Date / Time No Known Allergies Allergy Verified 07/08/21 19:31 Review of Systems Review of Systems: CONSTITUTIONAL: Denies fever, chills, or sweats. EYES: Denies visual changes, redness, or discharge. ENT: Denies rhinorrhea, congestion, sore throat, or otalgia. CARDIOVASCULAR: Denies chest pain, palpitations, or edema. RESPIRATORY: Denies cough or dyspnea. GASTROINTESTINAL: Reports mild frontal abdominal discomfort, denies nausea, vomiting or diarrhea GENITOURINARY: Denies dysuria or hematuria. Reports hesitancy which is chronic. SKIN: Denies rash or itching. MUSCULOSKELETAL: Denies back pain, joint pain, or myalgia. NEUROLOGIC: Denies headache, numbness, or weakness. [facility] Past Medical History Medical History History of gastroesophageal reflux (GERD) History of neurogenic bladder Hyperlipidemia Neurogenic bladder Straight Caths about 4 -5 times a day. Surgical History Surgical History H/O lymph node excision Left neck S/P cystourethroscopy with dilation of urethral stricture Family History Family History Mother Hypercholesteremia Father Hypercholesteremia Social History Social History Social History: The patient lives with his Kassandra. They have 2 children together. 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 The patient is a full code. He is a social drinker. Lifelong nonsmoker no illicit drugs or marijuana Smoking status: Never smoker Second hand tobacco smoke exposure: Yes Alcohol intake: current Drinks per week: 3 Substance use: never Gender identity (if verbalized by the patient): Male Spiritual care concerns: No Exam Narrative: GENERAL: Awake, alert, conversant HEAD: Normocephalic, atraumatic. EYES: PERRLA and EOMI. ENT: Nares clear, no rhinorrhea or epistaxis. Mucous membranes moist. NECK: Supple. CHEST: No respiratory distress, breathing even and non labored HEART: Regular rate, sinus rhythm ABDOMEN:Non distended, non tender, no suprapubic tenderness, no CVA tenderness bilaterally EXTREMITIES: Normal range of motion. No edema. SKIN: Warm, dry, no rash. NEURO:No focal deficits. Alert and oriented x3 Course Vital Signs Vital signs: Vital Signs Temperature 36.2 C L 07/08/21 16:02 Pulse Rate 68 07/08/21 16:02 R
[2021-07-08 20:00] LABS: Add Urine Microscopic? YES; Appearance Urine Clear (Clear); Bilirubin Urine Negative (Negative); Blood Urine Negative (Negative); Color Urine Yellow (Yellow); Glucose Urine UA Negative (Negative); Ketones Urine Negative (Negative); Leukocyte Esterase Ur Trace LEU/UL (Negative); Mucus Urine Rare /lpf; Nitrate Urine Negative (Negative); Protein Urine Negative (Negative); RBC Urine 0-2 /hpf (0-2); Specific Grav Ur 1.012 (1.001-1.035); Squamous Epithelial Cell Urine Rare /hpf (Few); Urobilinogen Urine Negative mg/dL (<2.0)
== END 2021-07-08 20:25 | disposition home or self-care (01) ==
PROVIDERS: Emergency Medicine; Emergency Provider Emergency Medicine
DX: N31.9 Neuromuscular dysfunction of bladder, unspecified (principal); R82.998 Other abnormal findings in urine; K21.9 Gastro-esophageal reflux disease without esophagitis; E78.5 Hyperlipidemia, unspecified
CPT/HCPCS: 36415; 80053; 81001; 83690; 85025; 99283

== ENCOUNTER 2021-11-19 10:25 | Emergency (ER) | payer OTHER, SELFPAY ==
[2021-11-19 10:30] VITALS: BP 120/64; PULSE 110; RESP 16; TEMP 37.3; O2SAT 97
[2021-11-19 10:44] LABS: Basophils Absolute Auto 0.1 K/mm3 (0.0-0.1); Basophils Percent Auto 0.3 % (0.2-1.2); Eosinophils Percent Auto 0.3 % (0-4.4); Hematocrit 44.2 % (42.0-52.0); Hemoglobin 15.2 g/dL (14.0-18.0); Immature Granulocyte Absolute 0.04 K/mm3 (0.00-0.031); Immature Granulocyte Percent A 0.3 % (0-0.5); Lymphocytes Absolute Auto 1.51 K/mm3 (0.9-3.2); Lymphocytes Percent Auto 9.9 % (18.3-44.2); Mean Corpuscular HGB Conc 34.4 g/dl (32-36); Mean Corpuscular Hemoglobin 30.8 pg (26-34); Mean Corpuscular Volume 89.7 fl (80-100); Mean Platelet Volume 10.1 fl (7.4-10.4); Monocytes Absolute Auto 1.9 K/mm3 (0.1-0.6); Monocytes Percent Auto 12.5 % (2.6-8.5); Neutrophils Absolute Auto 11.7 K/mm3 (1.3-6.7); Neutrophils Percent Auto 76.7 % (45.5-73.1); Platelet Count Result 254 k/mm3 (150-375); Red Blood Count 4.93 M/mm3 (4.6-6.20); Red Cell Distribution Width 12.4 % (11.5-14.5); White Blood Count 15.3 K/mm3 (4.5-10.0)
[2021-11-19 10:59] LABS: Alanine Aminotransferase 55 U/L (4-50); Albumin Level 4.7 g/dL (3.5-5.1); Alkaline Phosphatase 82 U/L (38-126); Anion Gap 6 mmol/L (8-16); Aspartate Amino Transferase 51 U/L (17-59); Bilirubin,Total 2.9 mg/dL (0.2-1.3); Blood Urea Nitrogen 9 mg/dL (9-20); Calcium 9.3 mg/dL (8.4-10.2); Carbon Dioxide 28 mmol/L (22-30); Chloride 103 mmol/L (98-107); Estimated CRCL calculation 80 ml/min; Estimated Glomerular Filt Rate > 60; Glucose 160 mg/dL (65-110); Sodium 137 mmol/L (137-145)
[2021-11-19 11:48] LABS: Add Urine Microscopic? YES; Appearance Urine Cloudy (Clear); Bacteria Urine 4+ /hpf; Bilirubin Urine Negative (Negative); Color Urine Yellow (Yellow); Glucose Urine UA Negative (Negative); Ketones Urine 1+ mg/dL (Negative); Leukocyte Esterase Ur Trace LEU/UL (Negative); Mucus Urine Rare /lpf; Nitrate Urine Positive (Negative); Protein Urine Negative (Negative); Specific Grav Ur 1.017 (1.001-1.035); Squamous Epithelial Cell Urine Rare /hpf (Few); Urobilinogen Urine Negative mg/dL (<2.0); WBC Urine 21-30 /hpf
[2021-11-19 11:50] VITALS: TEMP 37.7
[2021-11-19 11:59] LABS: Blood Urine Negative (Negative)
[2021-11-19] MEDS: ACETAMINOPHEN 500 MG TABLET 1000 MG PO (13:02)
[2021-11-19] MEDS: SODIUM CHLORIDE 0.9% IV 1,000 ML 999 ML IV CONT (13:05)
--- NOTE | 2021-11-19 15:15 | ED.GENADULT ---
HPI - General Adult General Chief complaint: Back Pain/Injury Stated complaint: fever, back pain Time Seen by Provider: 11/19/21 11:33 History of Present Illness HPI narrative: Patient is a 51-year-old male who presents ER with concerns for UTI. He is having lower abdominal pressure that radiates into his back. Patient has history of idiopathic neurogenic bladder and performs self-catheterization. He has begun having subjective fever. He also has been having darker appearing urine than typical. No additional infectious symptoms. No diarrhea. No chest pain or chest pressure. No difficulty breathing or cough. Related Data Home Medications Medication Instructions Recorded Confirmed omeprazole 20 mg PO DAILY 01/22/20 01/22/20 cranberry 07/08/21 Allergies Allergy/AdvReac Type Severity Reaction Status Date / Time No Known Allergies Allergy Verified 11/19/21 11:42 Review of Systems Review of Systems: All systems reviewed & are unremarkable except as noted in HPI and below Constitutional: Constitutional: Reports chills, Reports fever(s) and Denies weakness ENT: Denies nasal congestion and Denies sore throat Cardiovascular: Cardiovascular: Denies chest pain and Denies radiating jaw, neck or arm pain Gastrointestinal: Gastrointestinal: Reports abdominal pain, Denies diarrhea, Denies nausea and Denies vomiting Genitourinary: Genitourinary: Denies hematuria, Denies dysuria, Denies urinary frequency and Denies urinary incontinence Comments: Malodorous urine PMFSH Past Medical History Medical History History of gastroesophageal reflux (GERD) History of neurogenic bladder Hyperlipidemia Neurogenic bladder Straight Caths about 4 -5 times a day. Surgical History Surgical History H/O lymph node excision Left neck S/P cystourethroscopy with dilation of urethral stricture Family History Family History Mother Hypercholesteremia Father Hypercholesteremia Social History Social History Social History: The patient lives with his Kassandra. They have 2 children together. 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 The patient is a full code. He is a social drinker. Lifelong nonsmoker no illicit drugs or marijuana Smoking status: Never smoker Second hand tobacco smoke exposure: Yes Alcohol intake: current Drinks per week: 3 Substance use: never Gender identity (if verbalized by the patient): Male Spiritual care concerns: No Exam Narrative: GENERAL: Well-appearing, well-nourished, and in no acute distress. HEAD: Normocephalic, atraumatic. ENT: Mucous membranes moist. CHEST: Clear to auscultation. No respiratory distress. HEART: Regular rate and rhythm. Normal peripheral pulses. ABDOMEN: Soft, nontender, nondistended, no CVA tenderness. EXTREMITIES: Normal range of motion. No edema. SKIN: Warm, dry, no rash. NEURO: Alert and oriented x3. PSYCH: Normal mood and affect. Course Course Emergency Course: Patient resting comfortably. Hydrated. Antipyretics administered as well as antibiotics. Discharge home with [facility]. Vital Signs Vital signs: Vital Signs Temperature 99.2 F 11/19/21 10:30 Pulse Rate 110 H 11/19/21 10:30 Respiratory Rate 16 11/19/21 10:30 Blood Pressure 120/64 11/19/21 10:30 Pulse Oximetry 97 11/19/21 10:30 Temperature 99.8 F H 11/19/21 11:50 Pulse Rate 110 H 11/19/21 10:30 Respiratory Rate 16 11/19/21 10:30 Blood Pressure 120/64 11/19/21 10:30 Pulse Oximetry 97 11/19/21 10:30 Medical Decision Making Vital Signs Vital Signs: Vital Signs Temperature 99.2 F 11/19/21 10:30 Pulse Rate 110 H 11/19/21 10:30 Respiratory Rate 16 11/19/21 10:30 Blood
[2021-11-19 15:24] VITALS: PULSE 74; RESP 16; O2SAT 99
[2021-11-19 15:26] VITALS: TEMP 36.4
== END 2021-11-19 15:27 | disposition home or self-care (01) ==
PROVIDERS: Emergency Provider Emergency Medicine
DX: N39.0 Urinary tract infection, site not specified (principal); N31.8 Other neuromuscular dysfunction of bladder; E78.5 Hyperlipidemia, unspecified; K21.9 Gastro-esophageal reflux disease without esophagitis
CPT/HCPCS: 36415; 80053; 81001; 85025; 87077; 87086; 87186; 96361; 96365; 99284; A9270; J0696; J7030

== ENCOUNTER 2022-03-25 12:26 | Emergency (ER) | payer OTHER, SELFPAY ==
[2022-03-25 12:34] VITALS: BP 115/65; PULSE 66; RESP 14; TEMP 36.3; O2SAT 95
--- NOTE | 2022-03-25 12:39 | ED.URI ---
HPI - URI/Sore Throat General Chief Complaint: Upper Respiratory Infection Stated Complaint: Cough,Congestion Time Seen by Provider: 03/25/22 12:43 Source: patient, RN notes reviewed and old records reviewed Mode of arrival: ambulatory Limitations: no limitations History of Present Illness HPI Narrative: 51-year-old female who presents to [facility] with complaints of cough and congestion since Monday last week with progressive to cough on Monday. Patient reports that he has had COVID vaccination and Booster and also has had flu shot. Patient reports that he has also had ore throat and nasal congestion and drainage, denies any known fevers. Home Covid test taken last week negative. MD elicited complaint: cough, sore throat, rhinorrhea and nasal congestion Onset (ago): day(s) () Related Data Home Medications Medication Instructions Recorded Confirmed omeprazole 20 mg capsule,delayed 20 mg PO DAILY 01/22/20 03/25/22 release Allergies Allergy/AdvReac Type Severity Reaction Status Date / Time No Known Allergies Allergy Verified 03/25/22 12:31 Review of Systems Review of Systems: CONSTITUTIONAL: Denies fever, chills, or sweats. EYES: Denies visual changes, redness, or discharge. ENT: Positive for rhinorrhea, congestion, sore throat, no otalgia. CARDIOVASCULAR: Denies chest pain, palpitations, or edema. RESPIRATORY: Positive for cough or dyspnea. GASTROINTESTINAL: Denies abdominal pain, nausea, vomiting, or diarrhea. GENITOURINARY: Denies dysuria or hematuria. SKIN: Denies rash or itching. MUSCULOSKELETAL: Denies back pain, joint pain, or myalgia. NEUROLOGIC: Denies headache, numbness, or weakness. PSYCHIATRIC: Denies anxiety or depression. All systems reviewed & are unremarkable except as noted in HPI and below PMFSH Past Medical History Medical History History of gastroesophageal reflux (GERD) History of neurogenic bladder Hyperlipidemia Neurogenic bladder Straight Caths about 4 -5 times a day. Surgical History Surgical History H/O lymph node excision Left neck S/P cystourethroscopy with dilation of urethral stricture Family History Family History Mother Hypercholesteremia Father Hypercholesteremia Social History Social History Social History: The patient lives with his Kassandra. They have 2 children together. 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 The patient is a full code. He is a social drinker. Lifelong nonsmoker no illicit drugs or marijuana Smoking status: Never smoker Second hand tobacco smoke exposure: Yes Alcohol intake: current Drinks per week: 3 Substance use: never Gender identity (if verbalized by the patient): Male Spiritual care concerns: No Comments At time of signature, agree with nursing past medical, surgical, social and family history. There is no relevant family history pertinent to the presenting complaint Exam Narrative: GENERAL: Well-appearing, well-nourished, and in no acute distress. HEAD: Normocephalic, atraumatic. EYES: PERRLA and EOMI. ENT: Nares red with clear rhinorrhea no epistaxis. Mucous membranes moist.TM's normal with dull light reflex. throat with some mild redness, no lesions or exudates, no tonsil enlargement,post nasal drainage noted. CHEST: Clear to auscultation. No respiratory distress. cough noted no tachypnea, SAO2 95% on room air HEART: Regular rate and rhythm. No murmur heard. Normal peripheral pulses. ABDOMEN: Soft, nontender, nondistended, normal active bowel sounds. EXTREMITIES: Normal range of motion. No edema. SKIN: Warm, dry, no rash. NEURO: No focal deficits. Alert and oriented x3. Course Course Level of Care: Express Care Visit Yadira
== END 2022-03-25 13:06 | disposition home or self-care (01) ==
PROVIDERS: Emergency Provider Registered Nurse
DX: J32.9 Chronic sinusitis, unspecified (principal); Z20.822 Contact with and (suspected) exposure to COVID-19; K21.9 Gastro-esophageal reflux disease without esophagitis; E78.5 Hyperlipidemia, unspecified; N31.9 Neuromuscular dysfunction of bladder, unspecified
CPT/HCPCS: 87081; 87426; 87880; 99213; C9803; G0463

== ENCOUNTER 2023-01-05 21:54 | Emergency (ER) | payer OTHER, SELFPAY ==
[2023-01-05 21:57] VITALS: BP 138/71; PULSE 59; RESP 16; TEMP 36.8; O2SAT 98
--- NOTE | 2023-01-05 23:00 | PC.NURSE ---
patient states that he just wants to see his doctor in the morning and left from waiting area
== END 2023-01-05 23:00 | disposition left against medical advice (07) ==
DX: R10.10 Upper abdominal pain, unspecified (principal)
CPT/HCPCS: 99199

== ENCOUNTER 2023-01-06 09:31 | Emergency (ER) | payer OTHER, SELFPAY ==
[2023-01-06] VITALS (13 sets, daily range): BP systolic 121–130; BP diastolic 70–87; PULSE 75–87; RESP 16–18; TEMP 36.6; O2SAT 93–97
--- NOTE | ~2023-01-06 | CT_ITS ---
EXAMINATION: CT abdomen pelvis w con INDICATION: Abdominal pain TECHNIQUE: Computed tomographic images of the abdomen and pelvis were obtained after the administrati on of 100 cc of Omnipaque 350 intravenous contrast. The dose-length product (DLP) was 579.06 mGy-cm. Automated exposure control and iterative reconstruction technique were employed. COMPARISON: None available FINDINGS: Minimal dependent atelectasis is present in the lung bases. The heart size is normal. There is a 3 mm nodule of the right middle lobe. The liver, spleen, pancreas, gallbladder, and adrenal gla nds are normal. The left kidney is unremarkable. There is a 2 mm nonobstructing stone of the right ki dney lower pole. No pathologically enlarged abdominal or pelvic lymph nodes are identified. The appen azul is normal. There are tiny umbilical and epigastric hernias containing fat. There is mild lumbar s pondylosis. IMPRESSION: 1. Tiny umbilical and epigastric hernias containing fat. 2. Nonobstructing right nephrolithiasis. Reviewed, dictated and finalized at location B.
--- NOTE | 2023-01-06 10:35 | ED.ABDPAIN ---
HPI - Abdominal Pain General Chief Complaint: Abdominal Pain Stated Complaint: abd pain Time Seen by Provider: 01/06/23 10:26 History of Present Illness HPI narrative: 50-year-old male presented the emergency department for evaluation of midline supraumbilical tenderness and bulging. Patient states that he has been doing a lot of heavy lifting lately. Patient states that he began noticing a bulge over his umbilicus when he leans back. Patient has no prior history of umbilical hernia or abdominal wall surgery. Patient does have history of neurogenic bladder but denies any urinary symptoms. Patient also states he has had no nausea vomiting diarrhea or constipation. Patient states he did feel like sometimes his food is getting stuck when he eats but denies any other GI complaints. Patient does have history of GERD but does not have frequent follow-up with GI. Patient does take omeprazole. Related Data Home Medications Medication Instructions Recorded Confirmed omeprazole 20 mg capsule,delayed 20 mg PO DAILY 01/22/20 03/25/22 release Allergies Allergy/AdvReac Type Severity Reaction Status Date / Time No Known Allergies Allergy Verified 01/06/23 09:39 Review of Systems Review of Systems: All systems reviewed & are unremarkable except as noted in HPI and below PMFSH Past Medical History Medical History History of gastroesophageal reflux (GERD) History of neurogenic bladder Hyperlipidemia Neurogenic bladder Straight Caths about 4 -5 times a day. Surgical History Surgical History H/O lymph node excision Left neck S/P cystourethroscopy with dilation of urethral stricture Family History Family History Mother Hypercholesteremia Father Hypercholesteremia Social History Social History Social History: The patient lives with his Kassandra. They have 2 children together. 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 The patient is a full code. He is a social drinker. Lifelong nonsmoker no illicit drugs or marijuana Smoking status: Never smoker Second hand tobacco smoke exposure: Yes Alcohol intake: current Drinks per week: 3 Substance use: never Living arrangements: with family Occupation/Education: occupation Gender identity (if verbalized by the patient): Male Spiritual care concerns: No Exam Narrative: APPEARANCE: Well appearing, no pain, no distress, well-nourished. HEAD: normocephalic, atraumatic. EYES: PERRLA/EOMI, conjunctivae clear. NOSE: Normal no drainage NECK: Supple. No adenopathy, no masses. RESPIRATORY: Airway patent, respirations nonlabored. Clear to auscultation bilaterally, no rales, rhonchi, wheezing. CARDIOVASCULAR: Regular rate and rhythm without murmurs rubs or gallops. ABDOMINAL: Soft, nontender, normal bowel sounds, no incarcerated hernia or abdominal wall defect identified MUSCULOSKELETAL: Moves all extremities. Strength/ROM intact, No edema, No calf tenderness. NEURO: Alert. Cranial nerves II through XII intact. Grossly intact SKIN: Warm, dry. Normal Color Course Course Emergency Course: 52-year-old male presented to the ED for evaluation of bulging over the umbilicus. CT scan is being ordered. No incarcerated hernia palpated on exam. No significant abdominal wall defect identified on exam. Patient is afebrile with no leukocytosis. Patient's CMP is within normal limits. Patient's T. bili is mildly elevated at 2.5 but patient has normal AST ALT alk phos. UA shows no evidence of urinary tract infection. Patient does straight catheter urine culture will be ordered. CT did show evidence of an epigastric and small umbilical hernia containing fat. Patient was updated on the resul
[2023-01-06 10:53] LABS: Basophils Absolute Auto 0.1 K/mm3 (0.0-0.1); Eosinophils Absolute Auto 0.5 K/mm3 (0-0.3); Eosinophils Percent Auto 6.6 % (0-4.4); Hemoglobin 16.3 g/dL (14.0-18.0); Immature Granulocyte Absolute 0.01 K/mm3 (0.00-0.031); Immature Granulocyte Percent A 0.1 % (0-0.5); Lymphocytes Absolute Auto 1.61 K/mm3 (0.9-3.2); Lymphocytes Percent Auto 23.7 % (18.3-44.2); Mean Corpuscular HGB Conc 35.4 g/dl (32-36); Mean Corpuscular Volume 87.5 fl (80-100); Mean Platelet Volume 10.3 fl (7.4-10.4); Monocytes Absolute Auto 0.7 K/mm3 (0.1-0.6); Monocytes Percent Auto 10.5 % (2.6-8.5); Neutrophils Absolute Auto 3.9 K/mm3 (1.3-6.7); Neutrophils Percent Auto 58.1 % (45.5-73.1); Platelet Count Result 254 k/mm3 (150-375); Red Blood Count 5.26 M/mm3 (4.6-6.20); Red Cell Distribution Width 12.2 % (11.5-14.5); White Blood Count 6.8 K/mm3 (4.5-10.0)
[2023-01-06 11:12] LABS: Alanine Aminotransferase 48 U/L (6-50); Alkaline Phosphatase 80 U/L (38-126); Anion Gap 7 mmol/L (8-16); Aspartate Amino Transferase 35 U/L (17-59); Bilirubin,Total 2.5 mg/dL (0.2-1.3); Blood Urea Nitrogen 10 mg/dL (9-20); Calcium 9.7 mg/dL (8.4-10.2); Carbon Dioxide 27 mmol/L (22-30); Chloride 106 mmol/L (98-107); Estimated CRCL calculation 97 ml/min; Estimated Glomerular Filt Rate > 60; Glucose 108 mg/dL (65-110); Sodium 140 mmol/L (137-145)
[2023-01-06 11:22] LABS: Appearance Urine Clear (Clear); Bacteria Urine None Seen /hpf; Bilirubin Urine Negative (Negative); Blood Urine Negative (Negative); Color Urine Yellow (Yellow); Glucose Urine UA Negative (Negative); Ketones Urine Negative (Negative); Leukocyte Esterase Ur 2+ LEU/UL (Negative); Nitrate Urine Negative (Negative); Non Pathogenic Casts 0-2; Protein Urine Negative (Negative); RBC Urine 0-2 /hpf (0-2); Specific Grav Ur 1.012 (1.001-1.035); Squamous Epithelial Cell Urine None seen /hpf (Few)
[2023-01-06 11:36] LABS: Add Urine Microscopic? YES
== END 2023-01-06 13:11 | disposition home or self-care (01) ==
PROVIDERS: Emergency Provider Emergency Medicine
DX: K43.9 Ventral hernia without obstruction or gangrene (principal); K42.9 Umbilical hernia without obstruction or gangrene; N31.9 Neuromuscular dysfunction of bladder, unspecified; K21.9 Gastro-esophageal reflux disease without esophagitis; E78.5 Hyperlipidemia, unspecified; Z77.22 Contact with and (suspected) exposure to environmental tobacco smoke (acute) (chronic)
CPT/HCPCS: 36415; 74177; 80053; 81001; 85025; 87086; 99284; Q9967

== ENCOUNTER 2023-09-19 03:30 | Day surgery (SDC) | payer OTHER, SELFPAY ==
[2023-08-29 11:00] VITALS: BMI 29.2
--- NOTE | 2023-09-15 10:21 | SUR.PREOP ---
Patient called regarding upcoming procedure. Reviewed preop instructions, appointment times, and procedure prep.
[2023-09-19 07:02] VITALS: BP 116/74; PULSE 80; RESP 20; TEMP 36; O2SAT 97
[2023-09-19] MEDS: LACTATED RINGERS 1,000 ML 150 ML IV CONT (07:11)
--- NOTE | 2023-09-19 07:17 | PM.HPGS ---
History of Present Illness History of Present Illness Consent: Risks, benefits, and alternatives have been discussed and questions answered. Patient agrees to proceed with procedure. Chief complaint: GERD, Neoplasm screening Narrative: Richard Aguilar is a 53 year old male Was referred for colon cancer screening. His last colonoscopy was 10 years ago. Also has had chronic symptoms with acid reflux. He has been on omeprazole 20 mg a day and that it was increased to 40 mg a day. He had an EGD about 7 years ago that apparently was unremarkable. Review of Systems Review of Systems: All systems reviewed & are unremarkable except as noted in HPI and below PMFSH Past Medical History Medical History Colon cancer screening GERD with esophagitis History of gastroesophageal reflux (GERD) History of neurogenic bladder Hyperlipidemia Neurogenic bladder Straight Caths about 4 -5 times a day. Obesity Surgical History Surgical History H/O lymph node excision Left neck S/P cystourethroscopy with dilation of urethral stricture Family History Family History Mother Hypercholesteremia Father Hypercholesteremia Social History Social History Social History: The patient lives with his Kassandra. They have 2 children together. 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 The patient is a full code. He is a social drinker. Lifelong nonsmoker no illicit drugs or marijuana Smoking status: Never smoker Second hand tobacco smoke exposure: Yes Alcohol intake: current Drinks per week: 3 Alcohol use details: occasionally Substance use: never Substance use type: does not use Living arrangements: other Additional living arrangements comments: with sp Occupation/Education: occupation Gender identity (if verbalized by the patient): Male Spiritual care concerns: No Meds Home Medications and Allergies Home Medications Medication Instructions Recorded Confirmed Type atorvastatin 20 mg tablet (Lipitor) 20 mg PO DAILY 08/22/23 09/19/23 History omeprazole 20 mg capsule,delayed 40 mg PO DAILY 08/22/23 09/19/23 History release Allergies Allergy/AdvReac Type Severity Reaction Status Date / Time No Known Allergies Allergy Verified 09/19/23 07:12 Vital Signs Vital Signs - 24 hr 09/19/23 07:02 Temperature 36.0 C L Pulse Rate 80 Respiratory Rate 20 Blood Pressure 116/74 Pulse Oximetry 97 Oxygen Delivery Room Air Exam Const: General: alert Orientation/consciousness: patient oriented x3 Resp: Auscultation: clear to auscultation bilaterally Cardio: Rhythm: regular rhythm GI: GI Palp: Yes Soft to palpation and No Tenderness to palpation present (GI) Neuro: General: patient oriented x3 Assessment and Plan Assessment and plan (1) GERD with esophagitis: Code(s): K21.00 - Gastro-esophageal reflux disease with esophagitis, without bleeding Status: Acute Assessment and Plan: EGD with possible biopsy or dilatation or cautery. (2) Colon cancer screening: Code(s): Z12.11 - Encounter for screening for malignant neoplasm of colon Status: Acute Assessment and Plan: Colonoscopy with possible biopsy or polypectomy or cautery or injection of substances.
--- NOTE | 2023-09-19 07:23 | WPDANESEPPF ---
Anes - Initial Pre Proc Eval Procedure: Operation Date: 09/19/23 08:00 Proposed Procedures p Esophagogastroduodenoscopy & Screening Colonoscopy - El Stanton MD Date/Time: 09/19/23 07:23 Surgeon: El Stanton MD Pre Op Diagnosis: GERD, Neoplasm screening Patient Data Age: 53 Gender: M Height: 1.78 m Weight: 88.9 kg Last Vital Signs Temp 96.8 F L 09/19/23 07:02 Pulse 80 09/19/23 07:02 Resp 20 09/19/23 07:02 BP 116/74 09/19/23 07:02 Pulse Ox 97 09/19/23 07:02 O2 Del Method Room Air 09/19/23 07:02 Allergies Allergy/AdvReac Type Severity Reaction Status Date / Time No Known Allergies Allergy Verified 09/19/23 07:12 Home Medications Medication Instructions Recorded Confirmed Type atorvastatin 20 mg tablet (Lipitor) 20 mg PO DAILY 08/22/23 09/19/23 History omeprazole 20 mg capsule,delayed 40 mg PO DAILY 08/22/23 09/19/23 History release Patient hx anesthesia problems: none Family hx anesthesia problems: none Results Review: All pre-operative results and documents have been reviewed as part of the pre-operative evaluation. [facility] Past Medical History Medical History Colon cancer screening GERD with esophagitis History of gastroesophageal reflux (GERD) History of neurogenic bladder Hyperlipidemia Neurogenic bladder Straight Caths about 4 -5 times a day. Obesity Surgical History Surgical History H/O lymph node excision Left neck S/P cystourethroscopy with dilation of urethral stricture Family History Family History Mother Hypercholesteremia Father Hypercholesteremia Social History Social History Social History: The patient lives with his Kassandra. They have 2 children together. 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 The patient is a full code. He is a social drinker. Lifelong nonsmoker no illicit drugs or marijuana Smoking status: Never smoker Second hand tobacco smoke exposure: Yes Alcohol intake: current Drinks per week: 3 Alcohol use details: occasionally Substance use: never Substance use type: does not use Living arrangements: other Additional living arrangements comments: with sp Occupation/Education: occupation Gender identity (if verbalized by the patient): Male Spiritual care concerns: No Anes - Eval Final PreProcedure Day of Procedure 09/19/23 07:23 Patient weight: normal Heart: regular rate and rhythm Lungs: clear to auscultation Airway: Mallampati scale class II Neurological: alert and oriented Last oral intake: >/= 8 hours ASA classification: II Emergent: no Anesthetic plan: proceed Anesthesia type and monitoring: general GIVS and standard monitoring Results Review: All pre-operative results and documents have been reviewed as part of the pre-operative evaluation. Informed Consent: The patient's anesthetic plan and its attendant risks and benefits were discussed with the patient/family/POA. Questions were solicited and answers provided to the satisfaction of the patient/family/POA.
--- NOTE | 2023-09-19 08:17 | SUR.OPER ---
Addendum entered by Radha Charles RN 09/19/23 08:19: COLONOSCOPY START 08 Original Note: EGD END 810 COLONOSCOPY START
[2023-09-19 08:28] VITALS: BP 110/66; PULSE 87; RESP 16; O2SAT 93
[2023-09-19 08:35] VITALS: BP 108/67; PULSE 78; RESP 16; O2SAT 91
[2023-09-19 08:43] VITALS: BP 111/78; PULSE 78; RESP 22; O2SAT 94
== END 2023-09-19 08:54 | disposition home or self-care (01) ==
PROVIDERS: Visit Provider Internal Medicine Gastroenterology
PROC: 0DJ08ZZ Inspection of Upper Intestinal Tract, Via Natural or Artificial Opening Endoscopic (ICD-10-PCS; CPT 43235; principal; 2023-09-19 08:00)
DX: Z12.11 Encounter for screening for malignant neoplasm of colon (principal); K21.00 Gastro-esophageal reflux disease with esophagitis, without bleeding; E78.5 Hyperlipidemia, unspecified; N31.9 Neuromuscular dysfunction of bladder, unspecified; E66.9 Obesity, unspecified; Z68.28 Body mass index [BMI] 28.0-28.9, adult
CPT/HCPCS: 45378; 43239; 88305; J2704; J7120

== ENCOUNTER 2024-01-04 01:21 | Day surgery (SDC) | payer OTHER, SELFPAY ==
[2024-01-01 15:21] VITALS: BMI 27.1
--- NOTE | 2024-01-01 15:33 | PC.NURSE ---
Report to the Outpatient Waiting Room, entrance under the green pavilion located off [facility], at time __1145 on date _01/04/24 . Planned Procedure Time: _1345 . Time changes happen often and if your time is changed the preop area will call you the afternoon before. - You and your visitor will be asked to self-screen and do not enter if you have any COVID symptoms. - A mask is optional within the hospital at this time. Patients may have clear liquids (water, carbonated beverages, clear teas, apple juice) until 3 hours prior to surgery with a maximum of 20 ounces. - No food from midnight until time of surgery Take the following medications with a SIP of water the morning of surgery: NONE DO NOT STOP ANY OF YOUR OTHER PRESCRIPTION MEDICATIONS PRIOR TO SURGERY ?EXCEPT THE FOLLOWING Medications to discontinue per physician NONE Date to take last dose_NONE Please no make-up, nail danish, hairspray, perfume, deodorant, or body powder the day of surgery. No jewelry (including any body piercings) or valuables the day of surgery, leave them at home. Please take a shower or bath the night before, or the morning of, surgery with an antibacterial soap. Wear comfortable, loose fitting clothing. - Jewelry must be removed prior to entering the operating room. Rings and piercings that are not removed may be cut off. - The hospital will not accept responsibility for valuables. - Please leave all valuables, including medications, at home the day of surgery. If you are going home after surgery, a licensed transit mixer driver must drive you home. - NO public transportation without another adult if you receive anesthesia. - We recommend that an adult stay with you for 24 hours following discharge. - We also recommend that you do not drive, make important decision, drink alcoholic beverages, or take any drugs that were not prescribed by your health care provider for at least 24 hours after your discharge time. Follow any additional instructions given to you from your surgeon. If you or anyone in your household have experienced Covid symptoms in the past week, please notify your surgeon or the nurse liaison at the phone number below for possible testing. Telephone instructions given to _RICHARD and asked if any additional questions and then verbalized understanding. Patient advised to call surgeon office or pre surgery nurse liaison [phone] if any additional questions.
--- NOTE | 2024-01-03 06:42 | PM.HPGS ---
History of Present Illness History of Present Illness Consent: Risks, benefits, and alternatives have been discussed and questions answered. Patient agrees to proceed with procedure. Chief complaint: Elev PSA Narrative: Richard Aguilar is a 53 year old male who is known to our practice with a neurogenic atonic bladder spanning back to the time he had spinal cord injury. In the past he has been managed by Dr. Landaverde. Recently, however, he has been found to have a PSA of 6.1 and prostate MRI shows 1 PI-RADS 4 lesion in the left mid gland. This is surrounded by areas of prostatitis. After discussion of options he is elected to proceed with Uronav fusion biopsy. He is aware of the risks including, but not limited to, adverse cardiopulmonary events, urinary tract infection with bacteremia, hematuria and rectal bleeding Review of Systems Cardiovascular: Cardiovascular: Denies chest pain, Denies lightheadedness, Denies palpitations and Denies dyspnea Respiratory: Respiratory: Denies dyspnea Gastrointestinal: Gastrointestinal: Denies diarrhea, Denies nausea and Denies vomiting Genitourinary: Genitourinary: Denies hematuria and Denies dysuria Endocrine: Endocrine: Denies palpitations [facility] Past Medical History Medical History (Updated 01/03/24 @ 06:44 by Tate Krishnan MD) Colon cancer screening GERD with esophagitis History of gastroesophageal reflux (GERD) History of neurogenic bladder Hyperlipidemia Neurogenic bladder Straight Caths about 4 -5 times a day. Nonerosive esophageal reflux disease Obesity Surgical History Surgical History H/O lymph node excision Left neck S/P cystourethroscopy with dilation of urethral stricture Family History Family History Mother Hypercholesteremia Father Hypercholesteremia Social History Social History Social History: The patient lives with his Kassandra. They have 2 children together. 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 The patient is a full code. He is a social drinker. Lifelong nonsmoker no illicit drugs or marijuana Smoking status: Never smoker Second hand tobacco smoke exposure: Yes Alcohol intake: current Drinks per week: 3 Alcohol use details: occasionally Substance use: never Substance use type: does not use Living arrangements: with family Additional living arrangements comments: with sp Occupation/Education: occupation Gender identity (if verbalized by the patient): Male Spiritual care concerns: No Meds Home Medications and Allergies Home Medications Medication Instructions Recorded Confirmed Type atorvastatin 20 mg tablet (Lipitor) 20 mg PO DAILY 08/22/23 01/01/24 History omeprazole 20 mg capsule,delayed 40 mg PO DAILY 08/22/23 01/01/24 History release Allergies Allergy/AdvReac Type Severity Reaction Status Date / Time No Known Allergies Allergy Verified 01/01/24 15:34 Exam Const: General: no acute distress Resp: Effort & Inspection: normal respiratory effort GI: Inspection: non-distended GI Palp: No abdominal tenderness and No Guarding due to palpation present (GI) Auscultation: normal bowel sounds Assessment and Plan Assessment and plan (1) Elevated PSA: Code(s): R97.20 - Elevated prostate specific antigen [PSA] Status: Acute Assessment and Plan: Uronav fusion biopsy
--- NOTE | 2024-01-04 06:08 | WPDHPUPDATE1 ---
History and Physical Update Update Date/Time: 01/04/24 06:08 History and Physical has been reviewed, including an updated exam of the patient. There are NO changes in the patient's condition. Risks, benefits, and alternatives have been discussed and questions answered. Patient agrees to proceed with procedure.
[2024-01-04 11:59] VITALS: BP 115/81; PULSE 76; RESP 18; TEMP 36.6; O2SAT 97
[2024-01-04] MEDS: LACTATED RINGERS 1,000 ML 30 ML IV CONT (12:01)
--- NOTE | 2024-01-04 12:29 | WPDANESEPPF ---
Anes - Initial Pre Proc Eval Procedure: Operation Date: 01/04/24 13:00 Proposed Procedures p Trans Rectal Ultrasound Fusion Prostate Biopsy - Tate Krishnan MD Date/Time: 01/04/24 12:29 Surgeon: Tate Krishnan MD Pre Op Diagnosis: Elev PSA Patient Data Age: 53 Gender: M Height: 1.78 m Weight: 86.2 kg Last Vital Signs Temp 97.8 F 01/04/24 11:59 Pulse 76 01/04/24 11:59 Resp 18 01/04/24 11:59 BP 115/81 01/04/24 11:59 Pulse Ox 97 01/04/24 11:59 O2 Del Method Room Air 01/04/24 11:59 Allergies Allergy/AdvReac Type Severity Reaction Status Date / Time No Known Allergies Allergy Verified 01/04/24 11:45 Home Medications Medication Instructions Recorded Confirmed Type atorvastatin 20 mg tablet (Lipitor) 20 mg PO DAILY 08/22/23 01/04/24 History omeprazole 20 mg capsule,delayed 40 mg PO DAILY 08/22/23 01/04/24 History release Patient hx anesthesia problems: none Family hx anesthesia problems: none Results Review: All pre-operative results and documents have been reviewed as part of the pre-operative evaluation. [facility] Past Medical History Medical History Colon cancer screening GERD with esophagitis History of gastroesophageal reflux (GERD) History of neurogenic bladder Hyperlipidemia Neurogenic bladder Straight Caths about 4 -5 times a day. Nonerosive esophageal reflux disease Obesity Surgical History Surgical History H/O lymph node excision Left neck S/P cystourethroscopy with dilation of urethral stricture Family History Family History Mother Hypercholesteremia Father Hypercholesteremia Social History Social History Social History: The patient lives with his Kassandra. They have 2 children together. 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 The patient is a full code. He is a social drinker. Lifelong nonsmoker no illicit drugs or marijuana Smoking status: Never smoker Second hand tobacco smoke exposure: Yes Alcohol intake: current Drinks per week: 3 Alcohol use details: occasionally Substance use: never Substance use type: does not use Living arrangements: with family Additional living arrangements comments: with sp Occupation/Education: occupation Gender identity (if verbalized by the patient): Male Spiritual care concerns: No Anes - Eval Final PreProcedure Day of Procedure 01/04/24 12:29 Patient weight: normal Heart: regular rate and rhythm Lungs: clear to auscultation Airway: Mallampati scale class II and special considerations (Small chip L incisor. ) Neurological: alert and oriented Last oral intake: >/= 8 hours ASA classification: II Emergent: no Anesthetic plan: proceed Anesthesia type and monitoring: general GIVS and standard monitoring Results Review: All pre-operative results and documents have been reviewed as part of the pre-operative evaluation. Recently dx THALIA, mild, no CPAP, hyperlipidemia. Informed Consent: The patient's anesthetic plan and its attendant risks and benefits were discussed with the patient/family/POA. Questions were solicited and answers provided to the satisfaction of the patient/family/POA.
--- NOTE | 2024-01-04 13:46 | W.PM.PROC2 ---
Procedure Note - Detailed Date of Procedure 01/04/24 Pre-op Diagnosis Elevated PSA Post-op Diagnosis Same Procedure Performed Uronav prostate biopsy Surgeon Tate Krishnan MD Anesthesia General Description of Procedure Patient is brought to the operative suite where he is positioned in the left lateral position. Systemic sedation is administered per the anesthesia department. Surgical time-out is undertaken and it's verified the patient has received preoperative antibiotics. Transrectal ultrasonography is undertaken with a standard transrectal probe. The [employer] system is used to superimpose his previously obtained mpMRI prostate images on the real-time transrectal ultrasond images. Prostate volume is calculated at []cc. On the previous mpMRI there is just one region of interest. Using the transrectal needle design for prostate biopsies 3 cores from each region of interest her obtain. We then proceeded with a standard 12 core prostate biopsy. Transrectal probe was removed and patient taken to recovery room having tolerated the procedure well. Blood loss was less than 10 cc. Drains No Pathology Yes Complications No immediate complications Condition Stable
[2024-01-04 13:47] VITALS: BP 111/69; PULSE 80; RESP 14; O2SAT 92
[2024-01-04 14:15] VITALS: BP 107/63; PULSE 70; RESP 18
[2024-01-04 14:45] VITALS: BP 125/57; PULSE 61; RESP 16
== END 2024-01-04 15:11 | disposition home or self-care (01) ==
PROVIDERS: Visit Provider Urology
PROC: (CPT 55700; principal; 2024-01-04 13:00)
DX: C61 Malignant neoplasm of prostate (principal); N31.9 Neuromuscular dysfunction of bladder, unspecified; K21.9 Gastro-esophageal reflux disease without esophagitis; E78.5 Hyperlipidemia, unspecified
CPT/HCPCS: 76872; 55700; G0416; J0696; J2250; J2405; J2704; J3010; J7120